=== PATIENT | female | born 1990 | race Caucasian/White ===

== ENCOUNTER → 2019-01-30 | Outpatient (CLI) | payer OTHER ==
[~2019-01-30] MED LIST: OMNIPAQUE 350 MG/ML, 75ML BOTTLE ONE
== END | disposition home or self-care (01) ==
LOC: CFH 13:55
PROVIDERS: ATTEND Registered Nurse
DX: G44.85 Primary stabbing headache (principal)
CPT/HCPCS: 70470; Q9967